=== PATIENT | male | born 1975 | race Caucasian/White ===

== ENCOUNTER 2018-10-03 07:33 | Emergency (ER) | payer SELFPAY ==
[~2018-10-03] VITALS: Ht 167.6 cm; Wt 90.7 kg
[~2018-10-03 07:33] MED LIST: GLIP5TAB26 PO; LISI1TAB10 PO; METF-397 PO; METF-478 PO
[2018-10-03] MEDS ORDERED: CLINDAMYCIN 150 MG (CLEOCIN) CAP PO STA (07:53)
[2018-10-03] MEDS ORDERED: HYDROmorphone 2 MG/ML VIAL (DILAUDID) IM ONE (08:00)
--- NOTE | 2018-10-03 08:00 | ED EENT ---
History of Present Illness General Chief Complaint: Dental Problems/Pain Stated Complaint: LT SIDE TOOTH PAIN Nursing Triage Note: upper left sided tooth pain that started this morning upon awakening approximately 15 minutes ago. Is rating pain at 2000/10. Source: patient Exam Limitations: no limitations History of Present Illness Date Seen by Provider: October 03, 2018 Time Seen by Provider: 07:42 This is a 43-year-old man with a history of ujn-kxqmotv-pzrlavhzj diabetes mellitus and HTN here with left upper molar pain for 1 day. He said he had similar years ago. He has not recently seen a dentist. No fever or chills. No difficulty swallowing. No headache. No visual change or focal weakness, numbness , or tingling. It is noted that he is hypertensive and tachycardic upon arrival , he states he has not taken his morning medications yet. He denies chest pain or shortness of breath. He denies taking any medication today for this. Allergies and Home Medications Allergies Coded Allergies: Penicillins (Unverified Allergy, Unknown, 10/03/18) amoxicillin (Unverified Allergy, Unknown, 10/03/18) cefaclor (Unverified Allergy, Unknown, 10/03/18) clarithromycin (Unverified Allergy, Unknown, 10/03/18) Home Medications Clindamycin HCl 300 Mg Capsule, 300 MG PO TID Prescribed by: JUDSON WHITEHEAD on 10/03/18837 Glipizide 5 Mg Tab.er.24, 5 MG PO DAILY, (Reported) Hydrocodone/Acetaminophen 1 Each Tablet, 1 TAB PO Q4H Prescribed by: JUDSON WHITEHEAD on 10/03/18837 Lisinopril/Hydrochlorothiazide 1 Each Tablet, 1 EACH PO DAILY, (Reported) Lisinopril/Hydrochlorothiazide 1 Each Tablet, 1 EACH PO DAILY Prescribed by: LENNY TREVIÑO on 06/21/152121 Metformin HCl 500 Mg Tab.er.24, 1,000 MG PO BID, (Reported) Metformin HCl 500 Mg Tablet, 1,000 MG PO BID Prescribed by: LENNY TREVIÑO on 06/21/152121 Patient Home Medication List Home Medication List Reviewed: Yes Review of Systems Review of Systems Constitutional: no symptoms reported Eyes: No Symptoms Reported Ears: No Symptoms Reported Nose: no symptoms reported Mouth: see HPI Throat: no symptoms reported Respiratory: no symptoms reported Cardiovascular: no symptoms reported Gastrointestinal: no symptoms reported Musculoskeletal: no symptoms reported Skin: no symptoms reported Neurological: No Symptoms Reported Hematologic/Lymphatic: No Symptoms Reported Immunological/Allergic: no symptoms reported Past Uyyedip-Gursve-Wwhcwl Hx Past Med/Social Hx: Reviewed Nursing Past Med/Soc Hx Patient Social History Alcohol Use: Occasionally Uses Recreational Drug Use: No Smoking Status: Never a Smoker 2nd Hand Smoke Exposure: No Recent Foreign Travel: No Contact w/Someone Who Travel: No Recent Infectious Disease Expo: No Recent Hopitalizations: No Physical Abuse: No Sexual Abuse: No Mistreated: No Fear: No Seasonal Allergies Seasonal Allergies: No Past Medical History Surgeries: Yes (tubes in ears, wisdom teeth, r arm) Adenoidectomy, Ear Surgery, Orthopedic, Tonsillectomy Respiratory: No Cardiac: Yes High Cholesterol, Hypertension Neurological: No Reproductive Disorders: No Gastrointestinal: Yes Gastroesophageal Reflux, Ulcer Musculoskeletal: No Endocrine: Yes Diabetes, Non-Insulin dep HEENT: No Cancer: No Psychosocial: No Integumentary: No Blood Disorders: No Adverse Reaction/Blood Tranf: No Physical Exam Vital Signs Vital Signs - First Documented 10/03/18 07:37 Temp 98.5 Pulse 130 Resp 24 B/P (MAP) 160/121 (134) Pulse Ox 100 Height, Weight, BMI Height: 5'6.00" Weight: 200lbs. oz. 90.445199rp; BMI Method:Stated General Appearance: other (patient is rubbing the left side of his face and appears in moderate visible discomfort) Eyes: bilateral eye normal inspection, bilateral eye PERRL, bilateral eye EOMI Nose: No discharge Mouth/Throat: pharynx normal, other (there is a large dental caries on the posterior aspect of the left upper posterior molar with no surrounding gingival inflammation) Neck: non-tender, supple; No lymphadenopathy (R), No lymphadenopathy (L) Cardiovascular: normal peripheral pulses, regular rate, rhythm Respiratory: lungs clear Gastrointestinal: non tender, soft 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, no motor/sensory deficits, alert, oriented x 3, abnormal cerebellar tests; No abnormal gait Skin: warm/dry Progress/Results/Core Measures Results/Orders Lab Results Laboratory Tests Test 10/03/18 07:53 10/03/18 08:46 Range/Units Glucometer 200 H 70-110 MG/DL White Blood Count 10.5 4.3-11.0 10^3/uL Red Blood Count 5.33 4.35-5.85 10^6/uL Hemoglobin 15.6 13.3-17.7 G/DL Hematocrit 46 40-54 % Mean Corpuscular Volume 86 80-99 FL Mean Corpuscular Hemoglobin 29 25-34 PG Mean Corpuscular Hemoglobin Concent 34 32-36 G/DL Red Cell Distribution Width 12.8 10.0-14.5 % Platelet Count 284 130-400 10^3/uL Mean Platelet Volume 10.1 7.4-10.4 FL Sodium Level 140 135-145 MMOL/L Potassium Level 4.1 3.6-5.0 MMOL/L Chloride Level 96 L 98-107 MMOL/L Carbon Dioxide Level 28 21-32 MMOL/L Anion Gap 16 H 5-14 MMOL/L Blood Urea Nitrogen 12 7-18 MG/DL Creatinine 0.89 0.60-1.30 MG/DL Estimat Glomerular Filtration Rate > 60 BUN/Creatinine Ratio 13 Glucose Level 232 H 70-105 MG/DL Calcium Level 9.5 8.5-10.1 MG/DL My Orders Orders - JUDSON WHITEHEAD DO Hydromorphone Injection (Dilaudid Inject (10/03/18 08:00) Clindamycin Capsule (Cleocin Capsule) (10/03/18 07:53) Accucheck Stat ONCE (10/03/18 07:55) Hydrochlorothiazide Cap/Tablet (Hctz Cap (10/03/18 08:15) Lisinopril Tablet (Zestril Tablet) (10/03/18 08:08) Lisinopril Tablet (Zestril Tablet) (10/03/18 08:15) Ns Iv 1000 Ml (Sodium Chloride 0.9%) (10/03/18 08:38) Cbc No Diff (10/03/18 08:38) Basic Metabolic Panel (10/03/18 08:38) Ketorolac Injection (Toradol Injection) (10/03/18 09:29) Medications Given in ED Current Medications Medications Dose Ordered Sig/Valeriy Route Start Time Stop Time Status Last Admin Dose Admin Hydromorphone HCl 1 mg ONCE ONCE IM 10/03/18 08:00 10/03/18 08:01 DC 10/03/18 08:01 1 MG Lisinopril 20 mg ONCE ONCE PO 10/03/18 08:15 10/03/18 08:16 DC 10/03/18 08:14 20 MG Vital Signs/I&O 10/03/18 10/03/18 10/03/18 10/03/18 07:37 08:37 09:36 09:50 Temp 98.5 Pulse 130 129 126 126 Resp 24 18 B/P (MAP) 160/121 (134) 135/99 (111) 128/86 (100) 132/86 (101) Pulse Ox 100 98 Blood Pressure Mean: 134 Progress Progress Note #1: Progress Note This is a 43-year-old male with a history of diabetes here complaining of significant left upper molar pain. We checked a oosde-de-ngiv glucose which is only 200. He is not having systemic symptoms. As noted in history of present illness he is hypertensive and tachycardic likely due to pain, and he has not taken his morning medications yet. He however denies any symptoms of hypertensive emergency such as headache or neurologic symptoms, chest pain or difficulty breathing. We will treat with intramuscular hydromorphone for pain, as well as an oral dose of clindamycin and his morning anti hypertensive meds and we will reassess. If his vital signs improve appropriately it will be reasonable to discharge him with a plan for prompt outpatient follow-up with dentistry for definitive care, and with PCP for blood pressure recheck. Progress Note #2: Progress Note I checked the [place] narcotic database and there were no recent controlled substance prescriptions. We reviewed benefits, risks, alternatives to opioid prescribing. Progress Note #3: Progress Note Patient was persistently tachycardic although improved somewhat with analgesia. He felt like his pain was "manageable" but was still having pain. At that point I requested we check basic labs to screen for acidosis or anemia, and to give a fluid bolus for possible dehydration related to his dental pain and his underlying diabetes. He was upset about waiting, he was starting to take himself off of the monitor then was standing ready to walk out when I came to reevaluate at that point. He had received less than the full 2 L, he did not want to stay any further. His labs were unremarkable. His tachycardia is clearly related in part to pain and in part to general discomfort being in the emergency department. We did speak about my concerns, DKA, renal failure etc., it appeared that he did have decision-making capacity. He understood he needed to see a dentist as soon as possible and to return to this or the nearest emergency department for any worsening of his condition. Departure Impression Primary Impression: Dental caries Additional Impressions: Hypertension Pain, dental Disposition: HOME, SELF-CARE Condition: Stable Departure-Patient Inst. Referrals: NO,LOCAL PHYSICIAN (PCP/Family) Primary Care Physician See a dentist as soon as possible. Patient Instructions: Dental Pain (DC) Scripts Hydrocodone/Acetaminophen ([place] 7.5-325 Tablet) 1 Each Tablet 1 TAB PO Q4H for PAIN-MODERATE MDD 6 TABS for 5 Days, #16 TAB Prov: JUDSON WHITEHEAD DO 10/03/18 Clindamycin HCl (Clindamycin HCl) 300 Mg Capsule 300 MG PO TID for 10 Days, #30 CAP Prov: JUDSON WHITEHEAD DO 10/03/18 JUDSON WHITEHEAD DO October 03, 2018 08:00
[2018-10-03] MEDS ORDERED: lisINopril 10 MG (PRINIVIL) TABLET ONE (08:08)
[2018-10-03] MEDS ORDERED: lisINopril 20 MG (PRINIVIL) TABLET PO ONE (08:15)
[2018-10-03] MEDS ORDERED: HYDROCHLOROTHIAZIDE 25 MG (HCTZ) TAB PO ONE (08:15)
[2018-10-03] MEDS ORDERED: lisINopril 10 MG (PRINIVIL) TABLET PO ONE (08:15)
[2018-10-03 08:37] VITALS: BP 135/99
[2018-10-03] MEDS ORDERED: HYDR-4227 PO (08:38)
[2018-10-03] MEDS ORDERED: NS IV 1000 ML 1,000 ML IV STA (08:38)
[2018-10-03] MEDS ORDERED: CLIN300C11 PO (08:38)
[2018-10-03 08:57] LABS: HEMOGLOBIN 15.6 G/DL (13.3-17.7); MEAN PLATELET VOLUME 10.1 FL (7.4-10.4); RED CELL DISTRIBUTION WIDTH 12.8 % (10.0-14.5); WHITE BLOOD COUNT 10.5 10^3/uL (4.3-11.0)
[2018-10-03 09:15] LABS: BUN/CREATININE RATIO 13; CALCIUM 9.5 MG/DL (8.5-10.1); CARBON DIOXIDE 28 MMOL/L (21-32); CHLORIDE 96 MMOL/L (98-107); CREATININE SERUM 0.89 MG/DL (0.60-1.30); GFR ESTIMATED > 60; GLUCOSE 232 MG/DL (70-105); POTASSIUM 4.1 MMOL/L (3.6-5.0); SODIUM 140 MMOL/L (135-145)
[2018-10-03] MEDS ORDERED: KETOROLAC 30 MG/ML VIAL IVP STA (09:29)
[2018-10-03 09:36] VITALS: BP 128/86
[2018-10-03 09:50] VITALS: BP 132/86
== END 2018-10-03 09:50 | disposition home or self-care (01) ==
LOC: EDUNIT# 07:33 → ER FS 07:34
DX: K02.9 Dental caries, unspecified (principal); I10 Essential (primary) hypertension; E11.9 Type 2 diabetes mellitus without complications; E78.00 Pure hypercholesterolemia, unspecified; K21.9 Gastro-esophageal reflux disease without esophagitis; Z87.19 Personal history of other diseases of the digestive system; Z88.0 Allergy status to penicillin; Z88.1 Allergy status to other antibiotic agents; Z79.4 Long term (current) use of insulin; Z90.89 Acquired absence of other organs; Z96.22 Myringotomy tube(s) status
CPT/HCPCS: 36415; 80048; 82962; 85027; 96360; 96372; 96375